=== PATIENT | male | born 1955 | race Caucasian/White ===

== ENCOUNTER → 2017-09-19 | Emergency (ER) | END | disposition home or self-care (01) ==

== ENCOUNTER 2018-09-10 01:03 | Emergency (ER) | payer OTHER ==
[~2018-09-10] VITALS: Ht 162.6 cm; Wt 76.4 kg
[~2018-09-10 01:03] MED LIST: FAMO-96 PO; GLIP5TAB13 PO; HYDR-3498 PO; MAG355OR14 PO; METF500T24 PO; ONDA4TAB35 PO
[2018-09-10 01:06] VITALS: Ht 162.6 cm; Wt 76.4 kg
[2018-09-10] MEDS ORDERED: SULF1TAB31 PO (01:28)
[2018-09-10] MEDS ORDERED: CEPH-443 PO (01:28)
[2018-09-10] MEDS ORDERED: IBUP-1542 PO (01:28)
--- NOTE | 2018-09-10 01:36 | ERD ---
ER Documentation Chief Complaint Chief Complaint PT has scratch to L calf x 8 days, area is red and not healing hx DM 2 HPI 63-year-old male with past medical history of diabetes type 2 presents with complaint of left calf pain pain, swelling, redness. States he had a scratch on a piece of furniture, hard surface approximately 8 days ago. Wound has been slow to heal per patient and now with surrounding erythema and continued pain. States his diabetes is well controlled and currently on metformin, reported last A1c at 8.0. He otherwise denies fevers, chills, other injuries or trauma, chest pain, shortness of breath, dyspnea, nausea, vomiting, diarrhea. Has been putting Neosporin on wound. He otherwise is without complaint. At time of evaluation patient nontoxic-appearing with normal triage vital signs. ROS All systems reviewed and are negative except as per history of present illness. Medications Home Meds Active Scripts Ibuprofen* (Motrin*) 600 Mg Tab, 600 MG PO Q6, #30 TAB Prov:GUILHERME CLARK PA-C 09/10/18 Sulfamethoxazole/Trimethoprim* (Bactrim Ds* Tablet) 1 Each Tablet, 1 TAB PO BID for 7 Days, #14 TAB Prov:GUILHERME CLARK PA-C 09/10/18 Cephalexin* (Keflex*) 500 Mg Capsule, 500 MG PO QID for 7 Days, CAP Prov:GUILHERME CLARK PA-C 09/10/18 Famotidine* (Pepcid*) 20 Mg Tablet, 20 MG PO BID for 14 Days, TAB Prov:MARY SINGH MD 09/19/17 Mag Hydrox/Al Hydrox/Simeth (Maalox Advanced Suspension) 355 Ml Oral.susp, 2 TSP PO TID PRN for PAIN, #24 OZ Prov:MARY SINGH MD 09/19/17 Ondansetron Hcl* (Zofran* ODT) 4 mg -ODT Tab.disper, 4 MG PO Q6 PRN for NAUSEA AND/OR VOMITING, #10 TAB Prov:LICO DURAND MD 11/22/14 Hydrocodone Bit-Acetaminophen* (Hines*) 5-325 Mg Tab, 1 TAB PO Q6 PRN for PAIN, #20 TAB Prov:LICO DURAND MD 11/22/14 Reported Medications Glipizide* (Glipizide*) 5 Mg Tablet, 5 MG PO BID, TAB 11/22/14 Metformin Hcl* (Metformin Hcl*) 500 Mg Tablet, 500 MG PO BID WITH MEALS, TAB 11/22/14 Allergies Allergies: Coded Allergies: No Known Allergy (Unverified , 09/10/18) PMhx/Soc History of Surgery: Yes (Appendectomy) Anesthesia Reaction: No Hx Neurological Disorder: No Hx Respiratory Disorders: No Hx Cardiac Disorders: Yes (hypertension) Hx Psychiatric Problems: No Hx Miscellaneous Medical Probl: Yes (diabetes) Hx Alcohol Use: No Hx Substance Use: No Hx Tobacco Use: No Smoking Status: Never smoker FmHx Family History: No diabetes, No coronary disease, No other Physical Exam Vitals Vital Signs Date Temp Pulse Resp B/P (MAP) Pulse Ox O2 O2 Flow FiO2 Time Delivery Rate 09/10/18 98.0 64 20 126/67 100 01:06 (86) Physical Exam I have reviewed the triage vital signs. Const: Well nourished, well developed, appears stated age Eyes: PERRL, no conjunctival injection HENT: NCAT, Neck supple without meningismus CV: RRR, Warm, well-perfused extremities RESP: CTAB, Unlabored respiratory effort GI: soft, non-tender, non-distended, no masses MSK: No gross deformities appreciated Skin: Left medial surface of calf with approximately 2-1/2 to 3 m healing closed wound, surrounding erythema noted, very mild swelling, tender to touch, no discharge noted, SI LT throughout, good distal pulses noted Neuro: grossly non focal Psych: Appropriate mood and affect. Procedures/MDM 63-year-old male with diabetes type 2 presents with right lower extremity wound. Given his diabetes type 2, exam with surrounding erythema and mild swelling around closed wound will treat with Keflex and Bactrim DS for cellulitis. Patient advised to follow-up with his PMD upon discharge from the ED for continued monitoring of wound healing, and possible referral to diabetic specialist if need be. I have low suspicion for acute process such as systemic infection warranting further emergent care or work-up. Patient is nontoxic-appe aring and afebrile at the time of this evaluation. DISPOSITION PLAN: We discussed follow up with the patient's primary care doctor within 24 to 48 hours. Patient counseled regarding my diagnostic impression and care plan. Prior to discharge all questions answered. Pt agrees with treatment plan and understands strict return precautions. Precautionary instructions provided including instructions to return to the ER if not improving or for any worsening or changing symptoms or concerns. Disclaimer: Inadvertent spelling and grammatical errors are likely due to EHR/dictation software use and do not reflect on the overall quality of patient care. Also, please note that the electronic time recorded on this note does not necessarily reflect the actual time of the patient encounter. Departure Diagnosis: Primary Impression: Diabetic ulcer of lower leg Condition: Stable Patient Instructions: Diabetic Foot Care Additional Instructions: Call your primary care doctor TOMORROW for an appointment during the next 2-3 days.See the doctor sooner or return here if your condition worsens before your appointment time. GUILHERME CLARK PA-C Sep 10, 2018 01:36
[2018-09-10 02:05] VITALS: BP 125/60; PULSE 60; RESP 18
== END 2018-09-10 02:08 | disposition home or self-care (01) ==
LOC: FTE 01:03
DX: E11.621 Type 2 diabetes mellitus with foot ulcer (principal); I10 Essential (primary) hypertension; L97.529 Non-pressure chronic ulcer of other part of left foot with unspecified severity; Z79.84 Long term (current) use of oral hypoglycemic drugs
CPT/HCPCS: 99283